=== PATIENT | male | born 1975 | race Caucasian/White ===

== ENCOUNTER 2017-04-16 11:51 | Emergency (ER) | payer OTHER ==
--- NOTE | 2017-04-16 12:13 | EDM.PDOC ---
ED HPI GENERAL MEDICAL PROBLEM - General Chief Complaint: ENT Problem Stated Complaint: SORE THROAT Time Seen by Provider: 04/16/17 12:07 Source of Information: Reports: Patient History Limitations: Reports: No Limitations - History of Present Illness INITIAL COMMENTS - FREE TEXT/NARRATIVE: HISTORY AND PHYSICAL: []41-year-old male presenting with concerns over sore throat History of Present Illness: []Since had a sore throat for the last 3 days Patient has history of recurrent sinusitis and sinus surgery Also having some sinus pressure Review of Systems: As per history of present illness and below otherwise all systems reviewed and negative. Past medical history: As per history of present illness and as reviewed below otherwise noncontributory. Surgical history: As per history of present illness and as reviewed below otherwise noncontributory. Social history: No reported history of drug or alcohol abuse. Family history: As per history of present illness and as reviewed below otherwise noncontributory. Physical exam: Alert and oriented gentleman who answers questions appropriately in full sentences without any shortness of breath. HEENT: Atraumatic, normocehpalic, pupils reactive, negative for conjunctival pallor or scleral icterus, mucous membranes moist, throat red 2+ cryptic tonsils , neck supple, nontender, trachea midline. Anterior cervical adenopathy is easily palpable. Exquisite tenderness noted with palpation to the frontal sinus area. Light Penetration was poor. less tenderness with palpation to the maxillary sinuses improved light penetration was noticed to the maxillary area. Lungs: Clear to auscultation, breath sounds equal bilaterally, chest non tender. Heart: S1S2, regular, negative for clicks, rubs, or JVD. Abdomen: Soft, nondistended, nontender. Negative for masses or hepatossplenmegaly. Negative for costovertebral tenderness. Pelvis: Stable nontender. Genitourinary: Deferred. Rectal: Deferred Extremities: Atraumatic, negative for cords or calf pain. Neurovascular unremarkable. Neuro: Awake, alert, oriented. Cranial nerves II through XII unremarkable. Cerebellum unremarkable. Motor and sensory unremarkable throughout. Exam nonfocal. Diagnostics: [] Therapeutics: [] Impression: [Acute tonsillitis Sinusitis] Plan: [Symptomatic measures have been reviewed Rocephin IM Solu-Cortef IM ] Definitive disposition and diagnosis as appropriate pending reevaluation and review of above. - Related Data Allergies Allergy/AdvReac Type Severity Reaction Status Date / Time No Known Allergies Allergy Verified 04/16/17 12:08 Home Meds: Home Meds Levocetirizine Dihydrochloride [Xyzal] 5 mg PO DAILY 04/16/17 [History] Losartan/Hydrochlorothiazide [Losartan-HCTZ 100-25 MG] 1 tab PO DAILY 04/16/17 [ History] Omeprazole 20 mg PO DAILY 04/16/17 [History] Sertraline [Zoloft] 100 mg PO DAILY 04/16/17 [History] Triamcinolone Acetonide [Nasacort] 2 spray SHARMILA DAILY 04/16/17 [History] amLODIPine [Norvasc] 5 mg PO DAILY 04/16/17 [History] buPROPion [Wellbutrin SR] 100 mg PO DAILY 04/16/17 [History] ED ROS ENT - Review of Systems Review Of Systems: ROS reveals no pertinent complaints other than HPI. ED EXAM, ENT - Physical Exam Exam: See Below (see dictation) Departure - Departure Time of Disposition: 12:11 Disposition: Home, Self-Care 01 Condition: Good Clinical Impression: Tonsillitis, Sinusitis chronic, frontal - Discharge Information Referrals: PCP,None [Primary Care Provider] - Additional Instructions: The following information is given to patients seen in the emergency department who are being discharged to home. This information is to outline your options for follow-up care. We provide all patients seen in our emergency department with a follow-up referral. The need for follow-up, as well as the timing and circumstances, are variable depending upon the specifics of your emergency department visit. If you don't have a primary care physician on staff, we will provide you with a referral. We always advise you to contact your personal physician following an emergency department visit to inform them of the circumstance of the visit and for follow-up with them and/or the need for any referrals to a consulting specialist. The emergency department will also refer you to a specialist when appropriate. This referral assures that you have the opportunity for followup care with a specialist. All of these measure are taken in an effort to provide you with optimal care, which includes your followup. Under all circumstances we always encourage you to contact your private physician who remains a resource for coordinating your care. When calling for followup care, please make the office aware that this follow-up is from your recent emergency room visit. If for any reason you are refused follow-up, please contact the [facility] emergency department at and asked to speak to the emergency department charge nurse. You were given Rocephin IM Solu-Cortef Prescriptions were sent to [facility]
[2017-04-16] MEDS ORDERED: methylPREDNISolone Sodium Succinate 40 MG/1 ML SDV IM ONE (12:14)
[2017-04-16] MEDS ORDERED: cefTRIAXone 1,000 MG in Lidocaine 1% 4 ML IM ONE (12:14)
[2017-04-16 12:54] VITALS: BP 166/94
== END 2017-04-16 12:50 | disposition home or self-care (01) ==
LOC: MW.ED 11:51
DX: J03.90 Acute tonsillitis, unspecified (principal); J32.1 Chronic frontal sinusitis; Z79.899 Other long term (current) drug therapy
CPT/HCPCS: 96372; 99282; J0696; J2920